=== PATIENT | female | born 1965 | race Caucasian/White ===

== ENCOUNTER → 2018-10-01 | Outpatient (CLI) | payer OTHER ==
[~2018-10-01] MED LIST: IOPAMIDOL 370 MG/ML 200 ML INFUS..BTL INJ ONE; SODIUM CHLORIDE 0.9% 50ML 50 ML ONE
--- NOTE | 2018-10-01 15:58 | Diagnostic Imaging Report ---
CT scan of the RIGHT SHOULDER, WITH injected contrast. TECHNIQUE: Standard departmental protocols were used. Post-contrast images were obtained after the intravenous injection of 100 cc of Isovue-370. Sagittal and coronal reformatted images were obtained. DLP = 603.26 mGy-cm Dose modulation, iterative reconstruction, and/or weight based adjustment of the mA/kV was utilized to reduce the radiation dose to as low as reasonably achievable. HISTORY: Swelling x3 days COMPARISON: None available FINDINGS: Bones: No acute displaced fracture. No aggressive osseous lesion. Joints: The acromioclavicular and glenohumeral joint spaces are well-maintained without dislocation. Soft Tissues: Multiple small calcifications posterior to the proximal right humerus. No muscle atrophy. IMPRESSION: No acute CT abnormality of the right shoulder. Signed by: Dr. Amauri Sullivan D.O., M.M.M. on 10/01/2018 3:54 PM
--- NOTE | 2018-10-01 16:12 | Diagnostic Imaging Report ---
CT Neck with contrast, soft tissue protocol Comparison: None. TECHNIQUE: Standard departmental protocols were used. Post-contrast images were obtained after the intravenous injection of 100 cc of Isovue-370. Sagittal and coronal reformatted images were obtained. DLP = 603.26 mGy-cm (inclusive of concurrently performed right shoulder CT) Dose modulation, iterative reconstruction, and/or weight based adjustment of the mA/kV was utilized to reduce the radiation dose to as low as reasonably achievable. FINDINGS: Vascular findings: There is a three vessel left sided aortic arch. The brachiocephalic artery is patent and the right subclavian artery is patent. The left subclavian artery is patent. The right common carotid artery is patent. Mild atherosclerotic calcifications of the right carotid bifurcation. The visualized right internal carotid artery is patent. The left common carotid artery is patent. The visualized left internal carotid artery is patent. The extracranial segments of the right vertebral artery are patent. The extracranial segments of the left vertebral artery are patent. Bilateral internal jugular veins and superior vena cava appear patent. Right subclavian vein appears patent. Phase of contrast is not ideal for evaluation of the left subclavian vein. Additional findings: Visualized intracranial structures are unremarkable. The visualized paranasal sinuses and orbital structures are unremarkable. The pharyngeal and laryngeal structures are unremarkable. The parotid and submandibular glands are unremarkable. No evidence of mass lesion.No evidence of lymphadenopathy. The thyroid gland is unremarkable. The cervical spine is demonstrates mild degenerative disc changes at C5-C6 and C6-C7. No evidence of acute fracture or malalignment. Motion artifact limits evaluation for lung nodules. Mild biapical pleural-parenchymal opacity. IMPRESSION: No acute soft tissue neck abnormality on CT. No evidence of mass. Signed by: Dr. Ariana Valentine MD on 10/01/2018 4:08 PM
== END ==
LOC: CT 13:49
PROVIDERS: ATTEND Family Medicine
DX: R22.1 Localized swelling, mass and lump, neck (principal); R22.2 Localized swelling, mass and lump, trunk; Z85.79 Personal history of other malignant neoplasms of lymphoid, hematopoietic and related tissues
CPT/HCPCS: 70491; 73201; Q9967